=== PATIENT | female | born 1935 | race Caucasian/White ===

== ENCOUNTER 2024-07-01 21:36 | Inpatient (IN) | payer MEDICARE ==
[~2024-07-01] VITALS: Ht 160 cm; Wt 42.6 kg
[2024-07-01 23:53] LABS: BASOPHILS % (AUTO) 0.5 % (0.0-2.0); HEMATOCRIT 47 % (33-45); HEMOGLOBIN 15.4 g/dL (11.5-14.8); LYMPHOCYTES # (AUTO) 0.8 K/uL (0.8-4.8); LYMPHOCYTES % (AUTO) 14.7 % (20.0-44.0); MEAN CORPUSCULAR HEMOGLOBIN 30 PG (26.0-33.0); MEAN CORPUSCULAR HGB CONC 33 g/dl (31.0-36.0); MEAN CORPUSCULAR VOLUME 92 fL (82-100); MONOCYTES # (AUTO) 1.5 K/uL (0.1-1.30); MONOCYTES % (AUTO) 28.8 % (2.0-12.0); NEUTROPHILS # (AUTO) 2.9 K/uL (1.8-8.9); PLATELET COUNT (AUTO) 138 K/uL (150-450); RED BLOOD CELL COUNT(AUTO) 5.09 MIL/uL (4.0-5.2); RED CELL DISTRIBUTION WIDTH 15.1 % (11.5-15.0); WHITE BLOOD COUNT (AUTO) 5.2 K/uL (4.3-11.0)
[2024-07-02 00:03] LABS: CALCIUM, SERUM 9.3 mg/dL (8.5-10.1); CARBON DIOXIDE 29 mmol/L (21-32); CHLORIDE 101 mmol/L (98-107); CREATININE 1.2 mg/dL (0.6-1.3); GLUCOSE 138 mg/dL (74-106); POTASSIUM 3.4 mmol/L (3.5-5.1); SODIUM SERUM 139 mmol/L (136-145); UREA NITROGEN, BLOOD 21 mg/dL (7-18)
[2024-07-02] MEDS ORDERED: Magnesium 1GM/D5W 100ML PREMIX 100 ML IV ONE (00:07)
[2024-07-02] MEDS ORDERED: methylPREDNISolone SOD SUCC 125 MG/2ML VIAL ONE (00:07)
[2024-07-02] MEDS: Magnesium 1GM/D5W 100ML PREMIX 200 ML IV ONE (00:08)
[2024-07-02] MEDS: methylPREDNISolone SOD SUCC 125 MG/2ML VIAL IV ONE (00:08)
[2024-07-02 00:16] LABS: ALANINE AMINOTRANSFERASE 15 U/L (12-78); ALBUMIN 3.2 g/dL (3.4-5.0); ALKALINE PHOSPHATASE 66 U/L (46-116); ASPARTATE AMINOTRANSFERASE 33 U/L (15-37); BILIRUBIN,DIRECT 0.1 mg/dL (0.0-0.2); BILIRUBIN,TOTAL 0.4 mg/dL (0.2-1.0); NT-PRO BNP 3837 pg/mL (0-125); TOTAL PROTEIN, SERUM 7.6 g/dL (6.4-8.2)
[2024-07-02] MEDS: ALBUTEROL FS 2.5 MG/3 ML VIAL.NEB CONTNEB ONE (00:21)
[2024-07-02] MEDS: IPRATROPIUM NEB FS 0.5 MG/2.5 ML AMPUL.NEB NEB ONE (00:21)
[2024-07-02] MEDS ORDERED: ALBUTEROL FS 2.5 MG/3 ML VIAL.NEB ONE ×2 (00:23)
[2024-07-02] MEDS ORDERED: IPRATROPIUM NEB FS 0.5 MG/2.5 ML AMPUL.NEB ONE (00:23)
[2024-07-02 00:28] VITALS: O2SAT 87
[2024-07-02 00:46] LABS: LYMPHOCYTES % (MANUAL) 16 % (16-48); MONOCYTES % (MANUAL) 24 % (0-11.0); NEUTROPHILS % (MANUAL) 60 (42-76)
[2024-07-02 00:47] LABS: ANISOCYTOSIS 1+; PLATELET ESTIMATE DECREASED
[2024-07-02 01:28] VITALS: O2SAT 94
[2024-07-02] MEDS ORDERED: ALBUTEROL FS 2.5 MG/0.5 ML VIAL.NEB NEB PRN (03:30)
[2024-07-02] MEDS ORDERED: Z GUARD REMEDY 4 OZ OINT TP PRN (03:30)
[2024-07-02] MEDS ORDERED: MAG HYDROX/AL HYDROX/SIMETH 30 ML UDC PO PRN (03:30)
[2024-07-02] MEDS ORDERED: ONDANSETRON HCL/PF 4 MG/2 ML VIAL IVP PRN (03:30)
[2024-07-02] MEDS ORDERED: MAGNESIUM HYDROXIDE 30 ML UDC PO PRN (03:30)
[2024-07-02] MEDS ORDERED: ACETAMINOPHEN 325 MG TABLET PO PRN (03:30)
[2024-07-02] MEDS ORDERED: IPRATROPIUM NEB FS 0.5 MG/2.5 ML AMPUL.NEB NEB PRN (03:30)
[2024-07-02 05:50] VITALS: BP 106/67; TEMP 98.2; O2SAT 94
[2024-07-02] MEDS: methylPREDNISolone SOD SUCC 125 MG/2ML VIAL IV SCH (06:18)
[2024-07-02 08:22] LABS: BASOPHILS % (AUTO) 0.2 % (0.0-2.0); EOSINOPHILS % (AUTO) 0.1 % (0.0-6.0); HEMATOCRIT 45 % (33-45); LYMPHOCYTES # (AUTO) 0.3 K/uL (0.8-4.8); LYMPHOCYTES % (AUTO) 10.2 % (20.0-44.0); MEAN CORPUSCULAR HEMOGLOBIN 31 PG (26.0-33.0); MEAN CORPUSCULAR HGB CONC 34 g/dl (31.0-36.0); MEAN CORPUSCULAR VOLUME 91 fL (82-100); MONOCYTES # (AUTO) 0.2 K/uL (0.1-1.30); MONOCYTES % (AUTO) 4.9 % (2.0-12.0); NEUTROPHILS # (AUTO) 2.7 K/uL (1.8-8.9); NEUTROPHILS % (AUTO) 84.6 % (43.0-81.0); PLATELET COUNT (AUTO) 148 K/uL (150-450); RED BLOOD CELL COUNT(AUTO) 4.93 MIL/uL (4.0-5.2); RED CELL DISTRIBUTION WIDTH 14.3 % (11.5-15.0); WHITE BLOOD COUNT (AUTO) 3.2 K/uL (4.3-11.0)
[2024-07-02 08:31] LABS: CALCIUM, SERUM 9.3 mg/dL (8.5-10.1); CREATININE 1.2 mg/dL (0.6-1.3); MAGNESIUM 2.7 mg/dL (1.8-2.4); PHOSPHORUS 4.2 mg/dL (2.5-4.9); POTASSIUM 3.1 mmol/L (3.5-5.1)
[2024-07-02] MEDS ORDERED: AMLO2.5T2 PO (08:40)
[2024-07-02] MEDS ORDERED: FURO-145 PO (08:40)
[2024-07-02] MEDS ORDERED: APIX2.5T PO (08:40)
[2024-07-02] MEDS ORDERED: POTA10CA43 PO (08:40)
[2024-07-02] MEDS ORDERED: METO-357 PO (08:40)
[2024-07-02] MEDS: POTASSIUM CHLORIDE 20 MEQ TAB.PRT.SR PO SCH (10:38)
[2024-07-02] MEDS: POTASSIUM CHLORIDE 10 MEQ TABLET.SA PO SCH (12:00)
[2024-07-02] MEDS: FUROSEMIDE 20 MG TABLET PO SCH (12:42)
[2024-07-02] MEDS: METOPROLOL SUCCINATE 50 MG TAB.SR.24H PO SCH (12:43)
[2024-07-02] MEDS: APIXABAN 2.5 MG TABLET PO SCH (12:47)
[2024-07-02] MEDS: LEVOFLOXACIN (250MG) 250 MG TABLET PO ONE (14:00)
[2024-07-02] MEDS: DOXYCYCLINE HYCLATE (100 MG) 100 MG TABLET PO SCH (15:06)
[2024-07-02] MEDS: AMLODIPINE BESYLATE 2.5 MG TABLET PO SCH (17:26)
[2024-07-02 19:45] VITALS: O2SAT 90
[2024-07-02 20:00] VITALS: BP 112/82; TEMP 97.5; O2SAT 96
[2024-07-02] MEDS: ALBUTEROL FS 2.5 MG/0.5 ML VIAL.NEB NEB SCH (20:22)
[2024-07-02] MEDS: IPRATROPIUM NEB FS 0.5 MG/2.5 ML AMPUL.NEB NEB SCH (20:22)
[2024-07-03] VITALS (13 sets, daily range): BP systolic 102–140; BP diastolic 75–98; TEMP 97.5–98.6; O2SAT 95–100
[2024-07-03 07:09] LABS: BASOPHILS % (AUTO) 0.1 % (0.0-2.0); HEMATOCRIT 47 % (33-45); HEMOGLOBIN 15.6 g/dL (11.5-14.8); LYMPHOCYTES # (AUTO) 0.7 K/uL (0.8-4.8); MEAN CORPUSCULAR HEMOGLOBIN 30 PG (26.0-33.0); MEAN CORPUSCULAR HGB CONC 33 g/dl (31.0-36.0); MEAN CORPUSCULAR VOLUME 91 fL (82-100); MONOCYTES # (AUTO) 0.9 K/uL (0.1-1.30); MONOCYTES % (AUTO) 6.9 % (2.0-12.0); NEUTROPHILS # (AUTO) 11.8 K/uL (1.8-8.9); PLATELET COUNT (AUTO) 166 K/uL (150-450); RED BLOOD CELL COUNT(AUTO) 5.18 MIL/uL (4.0-5.2); RED CELL DISTRIBUTION WIDTH 14.7 % (11.5-15.0); WHITE BLOOD COUNT (AUTO) 13.4 K/uL (4.3-11.0)
[2024-07-03 07:13] LABS: CALCIUM, SERUM 9.6 mg/dL (8.5-10.1); CREATININE 1.2 mg/dL (0.6-1.3); POTASSIUM 4.1 mmol/L (3.5-5.1)
[2024-07-03] MEDS: DILTIAZEM HCL CD 240 MG PO SCH (10:44)
[2024-07-03] MEDS: methylPREDNISolone SOD SUCC 125 MG/2ML VIAL IV SCH (11:30)
[2024-07-03] MEDS: ENSURE ENLIVE 237 ML LIQUID (VANILLA) PO SCH (12:06)
[2024-07-03] MEDS ORDERED: LEVOFLOXACIN (250MG) 250 MG TABLET PO SCH (14:00)
[2024-07-03] MEDS ORDERED: ZOLPIDEM TARTRATE 5 MG TABLET PO PRN (23:30)
[2024-07-04] MEDS: ZOLPIDEM TARTRATE 5 MG TABLET PO PRN
[2024-07-04 06:04] VITALS: BP 133/94; TEMP 95.7; O2SAT 95
[2024-07-04 10:26] VITALS: BP 113/83
[2024-07-04] MEDS ORDERED: ALBU2.5V38 NEB (12:20)
[2024-07-04] MEDS ORDERED: DILT240C88 PO (12:20)
[2024-07-04] MEDS ORDERED: FLUT1BLS6 IH (12:27)
[2024-07-04 13:18] VITALS: O2SAT 97
[2024-07-04 13:33] VITALS: O2SAT 97
== END 2024-07-04 17:39 | disposition home or self-care (01) | DRG 190 ==
LOC: ER 21:48 → TELE1 07-02 03:19 → MEDSG1 07-04 10:21
PROVIDERS: ATTEND Nurse Practitioner Acute Care
DX: J44.1 Chronic obstructive pulmonary disease with (acute) exacerbation (principal); J96.01 Acute respiratory failure with hypoxia; J47.0 Bronchiectasis with acute lower respiratory infection; E44.0 Moderate protein-calorie malnutrition; R64 Cachexia; Z68.1 Body mass index [BMI] 19.9 or less, adult; J20.9 Acute bronchitis, unspecified; I48.91 Unspecified atrial fibrillation; I10 Essential (primary) hypertension; J43.2 Centrilobular emphysema; E87.6 Hypokalemia; E88.09 Other disorders of plasma-protein metabolism, not elsewhere classified; Z87.891 Personal history of nicotine dependence; Z79.01 Long term (current) use of anticoagulants
CPT/HCPCS: 36415; 71045-TC; 71250-TC; 80048-TC; 80076-TC; 83735-TC; 83880; 84100-TC; 84484-TC; 85025-TC; 93307-TC; 94760-TC; 94799-TC; G0378; J2919; J3475